=== PATIENT | female | born 1990 | race African-American/Black ===

== ENCOUNTER 2020-06-10 13:57 | Emergency (ER) | payer OTHER ==
[~2020-06-10] VITALS: Ht 160 cm; Wt 72.6 kg
[2020-06-10 14:19] VITALS: BP 121/78
--- NOTE | 2020-06-10 14:19 | NUR ---
Patient discharged to home in stable condition. Written and verbal after care instructions given. Patient verbalizes understanding of instructions. Stressed follow up or return to ER for worsening s/s.
== END 2020-06-10 14:14 | disposition home or self-care (01) ==
LOC: ER 13:57
DX: D17.1 Benign lipomatous neoplasm of skin and subcutaneous tissue of trunk (principal); Z88.0 Allergy status to penicillin
CPT/HCPCS: A4663